=== PATIENT | male | born 1995 | race Caucasian/White ===

== ENCOUNTER 2024-10-23 22:28 | Inpatient (IN) ==
[2024-10-23 23:07] LABS: Appearance Urine Clear (Clear); Bilirubin Urine Negative (Negative); Blood Urine Negative (Negative); Color Urine Yellow; Glucose Urine UA Negative (Negative); Ketones Urine Trace (Negative); Leukocyte Esterase Urine Negative (Negative); Nitrite Urine Negative (Negative); Protein Urine Negative (Negative); Specific Gravity Urine 1.004 (1.000-1.030); Urobilinogen Urine Negative (Negative); pH Urine 6.5 (4.5-7.5)
[2024-10-23 23:08] LABS: Basophils # (auto) 0.07 K/uL (0.00-0.20); Basophils % (auto) 0.9 %; Eosinophils # (auto) 0.15 K/uL (0.00-0.50); Hematocrit (blood only) 41.3 % (42.0-52.0); Hemoglobin 14.1 g/dl (14.0-18.0); Immature Granulocytes # (auto) 0.02 K/uL (0.01-0.20); Immature Granulocytes % (auto) 0.3 %; Lymphocytes # (auto) 2.48 K/uL (1.20-3.40); Lymphocytes % (auto) 33.2 %; Mean Corpuscular Hemoglobin 33.4 pg (25.0-34.0); Mean Corpuscular Hgb Conc 34.1 g/dL (32.0-36.0); Mean Corpuscular Volume 97.9 fL (80.0-100.0); Mean Platelet Volume 10.7 fL (9.4-12.4); Monocytes % (auto) 9.4 %; Neutrophils # (auto) 4.04 K/uL (1.40-6.50); Neutrophils % (auto) 54.2 %; Platelet Count 283 K/uL (130-400); RDW Coefficient of Variation 11.5 % (11.5-14.5); RDW Standard Deviation 41.6 fL (36.4-46.3); Red Blood Count 4.22 M/uL (4.70-6.10); White Blood Count 7.46 K/ul (4.8-10.8)
[2024-10-23 23:30] LABS: Acetaminophen < 3 ug/ml (10-30); Salicylate < 3.0 mg/dl (3.0-30)
--- NOTE | 2024-10-23 23:32 | Emergency Department Note ---
Impression & Plan Suicide attempt by benzodiazepine overdose admit to [facility] ED Provider Note NAME: GALINA ORDAZ AGE: 29 SEX: Male INFORMANT: Patient ED PROVIDER(S): Bettina Grande DO CHIEF COMPLAINT: Suicide attempt by overdose PLAN: Disposition: admit to [facility]. MEDICAL DECISION MAKING: this is a 29-year-old male patient with a history of HIV and eating disorder who presents to the emergency department after a suicide attempt 2 to 3 days ago. The patient states that he took approximately 30 Ativan and attempt to go to sleep and not wake up. Patient describes recent history of worsening depression. He has a history of drug and alcohol abuse and bulimia. He is interested in dual diagnosis placement. He contacted [facility] on his own but they have no available beds. His insurance directed him here for evaluation. patient also admits that he used a drug that a friend gave to him a couple of days ago. He believes that it may have been methamphetamine that he smoked through a pipe. Patient was medically cleared here in the emergency department. He is not currently intoxicated. Table. He is willing to admit himself voluntarily for inpatient psychiatric care. The patient was evaluated by staff from [facility]. They have accepted them onto their unit. Care/management discussed with: ED psychiatric case management Triage Nursing notes: reviewed and agree them. Vital Signs: reviewed and remarkable for no significant abnormalities Additional History obtained from: patient's mother who is at the bedside Chronic Medical/Social Conditions affecting care: bulimia; HIV; drug abuse; alcohol abuse Differential Diagnosis: mood disorder, thought disorder, suicide attempt, drug overdose, alcohol withdrawal, alcohol abuse HPI: 29 year old Male arrives for evaluation of Overdose. patient describes increasing depression and thoughts of suicide. Patient took an overdose of 30 Ativan 2 to 3 days ago in an effort to kill himself. He hopes that he would go to sleep and not wake up. He describes abusing alcohol over the past 3 to 4 months by drinking an increasing amount of wine each day. Patient also suffers from bulimia and states that his eating disorder has become more out of control to the point that he has been vomiting. PAST MEDICAL HISTORY: Depression, anxiety, HIV, bulimia, alcohol abuse SOCIAL HISTORY: patient describes drinking a significant amount of wine each day. 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 He does describe smoking marijuana routinely and had recently abused what he thought was methamphetamine. HOME MEDICATIONS: See list ALLERGIES: see list VITALS: See Below PHYSICAL EXAMINATION: HEENT: Head - normocephalic and atraumatic. Pupils are equal, round, and reactive to light. Extraocular eye muscles are intact, and sclera are anicteric. Nose - moist nasal mucosa without discharge. Mouth - moist buccal mucosa. Oropharynx is nonerythematous and there is no tonsillar exudate or edema noted. Neck: Supple; no cervical lymphadenopathy Heart: tachycardic rate and Regular rhythm.There is a normal S1 and S2 with no murmurs, clicks, or gallops appreciated. Lungs: Clear to auscultation bilaterally with no wheezes, rales, or rhonchi. Abdomen: Soft, completely nontender, nondistended, with good bowel sounds. There are no palpable pulsatile masses or hepatosplenomegaly. There is no guarding, rigidity, or rebound noted. Extremities: No evidence of cyanosis, clubbing, or edema. There are easily palpable peripheral pulses. Skin: warm and dry with good turgor and no rashes. Psych: Patient had an elevated affect admits to suicidal thoughts with an attempt by overdosing on Ativan emergency department course: The patient was evaluated in room A-8. A complete history and physical was performed. Patient describes her previous Psychiatric admissions to [facility] at [facility]. laboratory studies were drawn as above. The patient was medically cleared and the patient was evaluated by the ED psychiatric showcase maker. The patient will be admitted Voluntarily. to 3 [facility]. Past Med/Surg History Problem List (Updated 10/24/24 @ 07:31 by Bettina Grande DO) Suicide attempt by benzodiazepine overdose (Acute) Social History Smoking Status: Never smoker Preferred Language: Azeri Communication Ability: Effective Mucker [place] Required: No Beliefs That Will Affect Care: None Feels Safe at Home: Yes Gender Identity: Male Assistive Devices: Glasses Allergies Allergies Allergy/AdvReac Type Severity Reaction Status Date / Time cyclobenzaprine Allergy Swelling Verified 10/23/24 23:30 [From Flexeril] of Lip/Tongue/Throat pseudoephedrine Allergy Swelling Verified 10/23/24 23:30 [From Sudafed] of Lip/Tongue/Throat Home Meds Home Medications Medication Instructions Recorded Confirmed bictegravir 50 mg-emtricitabine 1 tab PO DAILY 10/23/24 10/23/24 200 mg-tenofovir alafenam 25 mg tablet (Biktarvy) bupropion HCl 150 mg 24 hr tablet, 150 mg PO QAM 10/23/24 10/23/24 extended release buspirone 30 mg tablet 30 mg PO TID PRN Anxiety 10/23/24 10/23/24 citalopram 40 mg tablet 40 mg PO DAILY 10/23/24 10/23/24 hydroxyzine HCl 50 mg tablet 50 mg PO BID PRN Anxiety 10/23/24 10/23/24 lorazepam 1 mg tablet 1 mg PO BID 10/23/24 10/23/24 naltrexone 50 mg tablet 50 mg PO DAILY 10/23/24 10/23/24 ondansetron 4 mg disintegrating 4 mg PO Q8H PRN Nausea 10/23/24 10/23/24 tablet Results & Data (ED) Vital Signs Vital Signs - 24 hr 10/23/24 22:30 10/24/24 00:29 Temperature 36.1 C L Temperature Source Temporal Artery Scan Pulse Rate 104 H Pulse Rate [Finger] 80 Pulse Rhythm Regular Respiratory Rate 16 16 Respiratory Effort / Characteristics Non-Labored Respiratory Depth Normal Blood Pressure 146/106 H Blood Pressure [Right Arm] 131/86 Blood Pressure Mean 119 Blood Pressure Mean [Right Arm] 101 Pulse Oximetry 97 98 Oxygen Delivery Method Room Air Room Air Sepsis Recent Fever Within 48 Hours No Sepsis New/Unexplained Change in Mental Status No Sepsis Action Taken by Nursing No Action Required Laboratory Data 10/23/24 22:51 10/23/24 22:51 Lab Results 10/23/24 10/23/24 10/23/24 Range/Units 22:49 22:51 22:53 WBC 7.46 (4.8-10.8) K/ul RBC 4.22 L (4.70-6.10) M/uL Hgb 14.1 (14.0-18.0) g/dl Hct 41.3 L (42.0-52.0) % MCV 97.9 (80.0-100.0) fL MCH 33.4 (25.0-34.0) pg MCHC 34.1 (32.0-36.0) g/dL RDW Std Deviation 41.6 (36.4-46.3) fL RDW Coeff of Birgit 11.5 (11.5-14.5) % Plt Count 283 (130-400) K/uL MPV 10.7 (9.4-12.4) fL Immature Gran % (Auto) 0.3 % Neut % (Auto) 54.2 % Lymph % (Auto) 33.2 % Cooper % (Auto) 9.4 % Eos % (Auto) 2.0 % Baso % (Auto) 0.9 % Neut # (Auto) 4.04 (1.40-6.50) K/uL Lymph # (Auto) 2.48 (1.20-3.40) K/uL Cooper # (Auto) 0.70 H (0.11-0.59) K/uL Eos # (Auto) 0.15 (0.00-0.50) K/uL Baso # (Auto) 0.07 (0.00-0.20) K/uL Immature Gran # (Auto) 0.02 (0.01-0.20) K/uL Sodium 134 L (136-145) mmol/L Potassium 3.2 L (3.5-5.1) mmol/L Chloride 95 L (98-107) mmol/L Carbon Dioxide 27 (21-32) mmol/L Anion Gap 12 H (3-11) BUN 15 (6-23) mg/dl Creatinine 0.98 (0.6-1.4) mg/dl Est Cr Clr Drug Dosing 117.4 ml/min eGFR 106.38 BUN/Creatinine Ratio 15.3 (10-20) Glucose 93 (70-99(Fasting)) mg/dl Calcium 9.5 (8.6-10.3) mg/dl Total Bilirubin 0.9 (0.2-1.0) mg/dl AST 59 H (13-39) U/L ALT 44 (7-52) U/L Alkaline Phosphatase 52 (34-104) U/L Total Protein 7.5 (6.0-8.3) gm/dl Albumin 4.8 (3.4-5.0) gm/dl Globulin 2.7 (2.5-4.0) gm/dl Albumin/Globulin Ratio 1.8 (0.9-2) TSH 2.645 (0.300-4.500) uIu/ml Urine Color Yellow Urine Appearance Clear (Clear) Urine pH 6.5 (4.5-7.5) Ur Specific [place] 1.004 (1.000-1.030) Urine Protein Negative (Negative) Urine Glucose (UA) Negative (Negative) Urine Ketones Trace H (Negative) Urine Blood Negative (Negative) Urine Nitrite Negative (Negative) Urine Bilirubin Negative (Negative) Urine Urobilinogen Negative (Negative) Ur Leukocyte Esterase Negative (Negative) Salicylates < 3.0 L (3.0-30) mg/dl Urine Opiates Screen Neg (Neg) Ur Methadone, Qual Neg (Neg) Urine Fentanyl Screen Neg (Neg) Acetaminophen < 3 L (10-30) ug/ml Urine Barbiturates Neg (Neg) Ur Phencyclidine (PCP) Neg (Neg) U Amphetamin/Meth Scrn Pos H (Neg) MDMA (Ecstasy) Screen Neg (Neg) U Benzodiazepines Scrn Neg (Neg) Ur Cocaine Metabolite Neg (Neg) U Marijuana (THC) Screen Neg (Neg) Ethyl Alcohol mg/dL < 10.0 (<10.0) mg/dl SARS-CoV-2, RNA, NAAT NEGATIVE (NEGATIVE) Administered Medications Discontinued Medications Potassium Chloride (Potassium Chloride Crtab 20 Meq Tabcr) 40 meq PO NOW STA Stop: 10/23/24 23:56 Last Admin: 10/24/24 00:22 Dose: 40 meq Documented By: AN Discharge Plan Visit Data Chief Complaint: Mental Health Evaluation Stated Complaint: SUICIDAL IDEATION ED Provider: Bettina Grande Discharge Problem: Suicide attempt by benzodiazepine overdose Patient Disposition: Admitted As Inpatient Discharge Instructions Interventions: ED Discharge Assessment Last Done: 10/24/24 02:27
[2024-10-23 23:35] LABS: Albumin Globulin Ratio 1.8 (0.9-2); Albumin Level 4.8 gm/dl (3.4-5.0); BUN Creatinine Ratio 15.3 (10-20); Bilirubin,Total 0.9 mg/dl (0.2-1.0); Calcium 9.5 mg/dl (8.6-10.3); Creatinine Clr Calc Pharmacy 117.4 ml/min; Globulin 2.7 gm/dl (2.5-4.0); Potassium 3.2 mmol/L (3.5-5.1); Total Protein 7.5 gm/dl (6.0-8.3)
[2024-10-23 23:47] LABS: Amphetamines+Metham, Urine Pos (Neg); Barbiturates, Urine Neg (Neg); Benzodiazepine, Urine Neg (Neg); Cocaine, Urine Neg (Neg); Fentanyl, Urine Neg (Neg); MDMA (Ecstacy), Urine Neg (Neg); Marijuana, Urine Neg (Neg); Methadone, Urine Neg (Neg); Opiate, Urine Neg (Neg); Phencyclidine, Urine Neg (Neg)
[2024-10-24 00:07] LABS: Thyroid Stimulating Hormone 2.645 uIu/ml (0.300-4.500)
[2024-10-24] MEDS: POTASSIUM CHLORIDE CRTAB 20 MEQ TABCR PO STA (00:22)
--- OUTSIDE RECORDS SUMMARY | 2024-10-24 02:42 | External Medical Summary ---
Author Name Unknown Address Unknown Organization [id number]:[facility] [place] - [address] [facility] [address] Laboratory Report Ordering Provider Test Date Status BERNADETTE HARE 07/09/2024 21:54:03 Final Cutoff Concentrations:
Drug Level
Amphetamines 500 ng/mL
Benzodiazepines 100 ng/mL
Cannabinoids 50 ng/mL
Cocaine Metabolite 150 ng/mL
Fentanyl 1 ng/mL
Hydrocodone / Hydromorphone 300 ng/mL
Methadone Metabolite 100 ng/mL
Morphine / Codeine 300 ng/mL
Oxycodone / Oxymorphone 100 ng/mL

Screening results are presumptive and can only be used for medical purposes. Confirmatory testing is available upon request. Observation Date Value Abnormality Reference (Units ) Status Amphetamines, Urine screen 07/09/2024 21:54:03 Negative Negative Final Benzodiazepines, Urine screen 07/09/2024 21:54:03 Positive Abnormal Negative Final Cannabinoids, Urine screen 07/09/2024 21:54:03 Negative Negative Final Cocaine Metabolite, Urine screen 07/09/2024 21:54:03 Negative Negative Final fentaNYL [Presence] in Urine by Screen method 07/09/2024 21:54:03 Negative Negative Final HYDROcodone [Presence] in Urine by Screen method 07/09/2024 21:54:03 Negative Negative Final 0-Egsbdqmdzz-5,5-Dimeth yl-3,3-Diphenylpyrrolid ine (EDDP) [Presence] in Urine 07/09/2024 21:54:03 Negative Negative Final Opiates, Urine screen 07/09/2024 21:54:03 Negative Negative Final oxyCODONE [Presence] in Urine by Screen method 07/09/2024 21:54:03 Negative Negative Final Performing Location [facility] - [address] [facility] [id number]
--- OUTSIDE RECORDS SUMMARY | 2024-10-24 02:42 | External Medical Summary | Summary of Care ---
Author Name Unknown Organization [facility] Address [address] [place] [address] Phone [phone] Care Team Providers Care Crusher Feeder Name Role Phone Rashaad Caleb Primary Care Provider [phone] Reason for Visit * Reason Onset Date Comments Precert Denied 09/16/2024 Encounter Details Date Type Department Care Team (Late st Contact Info) Description 09/16/2024 Telephone General Surgery, [place] [address] [place] [address] Ana Garza MD [address] [place] [address] Precert Denied Allergies Active Allergy Reactions Criticality Noted Date Comments Cyclobenzaprine Hcl Psych complications 015 Mirtazapine Other (Please comment) Medium Hearing voices, decreased LOC Chlorpheniramine-Pseudoe ph 08/18/2014 Hives Pseudoephedrine Hcl Er 08/18/2014 Hives documented as of this encounter (statuses as of 09/20/2024) Medications Medication Sig Dispensed Refills Start Date End Date Status buPROPion HCl ER (SR) 150 MG Oral Tablet Extended Release 12 Hour Take 1 Tablet by mouth in the morning. Active busPIRone HCl 15 MG Oral Tablet (Buspar) Take 1 Tablet by mouth in the morning and 1 Tablet at noon and 1 Tablet before bedtime. 05/14/2023 Active Gabapentin 100 MG Oral Capsule Take 1 Capsule by mouth at bedtime. Active hydrOXYzine Pamoate 50 MG Oral Capsule Take 2 Capsules by mouth daily. 05/14/2023 Active Naltrexone HCl 50 MG Oral Tablet Take 1 Tablet by mouth in the morning. 07/14/2023 Active Naproxen 500 MG Oral Tablet (Naprosyn) Take 1 Tablet by mouth. 04/10/2023 Active NIFEdipine ER Osmotic Release 30 MG Oral Tablet Extended Release 24 Hour Take 1 Tablet by mouth in the morning. 06/18/2023 Active risperiDONE 2 MG Oral Tablet Take 2 Tablets by mouth. 05/14/2023 Active carBAMazepine 200 MG Oral Tablet Take 1 Tablet by mouth in the morning and 1 Tablet before bedtime. Active Cholecalciferol 25 MCG (1000 UT) Oral Tablet Disintegrating Take 1 Tablet by mouth daily. Active Melatonin 5 MG Oral Tablet Disintegrating Take 1 Tablet by mouth daily. Active Multi Complete/Iron Oral Tablet Take by mouth. Active Cilostazol 100 MG Oral Tablet (Pletal) Take 1 Tablet by mouth in the morning and 1 Tablet before bedtime. 180 Tablet 3 08/06/2023 Active Biktarvy 50-200-25 MG Oral Tablet (Bictegravir-Emtricita bine-Tenofovir)Indicat ions:HIV, asymptomatic (HCC) Take 1 Tablet by mouth in the morning. 30 Tablet 6 08/10/2023 Active Amoxicillin-Pot Clavulanate 875-125 MG Oral Tablet (Augmentin) Take 1 Tablet by mouth in the morning and 1 Tablet before bedtime. 20 Tablet 06/05/2024 Active Chlorhexidine Gluconate 0.12 % Mouth/Throat Solution (Periogard) Swish and spit 15 mL in the morning and 15 mL before bedtime. 473 mL 06/05/2024 Active LORazepam 1 MG Oral Tablet (Ativan) 07/08/2024 Active hydrOXYzine HCl 50 MG Oral Tablet 07/08/2024 Active documented as of this encounter (statuses as of 09/20/2024) Active Problems Problem Noted Date Diagnosed Date Anal bleeding 07/19/2024 PTSD (post-traumatic stress disorder) 07/10/2024 Bereavement, uncomplicated 07/10/2024 Borderline personality disorder 07/10/2024 Inhalant abuse with intoxication and without com plication 06/14/2017 Chronic bilateral low back pain with bilateral s ciatica 05/20/2017 Neck pain 04/01/2016 H/O psychiatric hospitalization 03/12/2016 Bipolar depression 02/21/2016 Polysubstance (excluding opioids) dependence 07/2015 Anticholinergic drug overdose 12/14/2014 Substance induced mood disorder 09/05/2014 Alcohol abuse 09/05/2014 Cannabis abuse 09/05/2014 Tobacco abuse 09/05/2014 Legal circumstances 09/05/2014 Overview: Is on Probation with [facility] [place], may have further charges from State [employer] HIV disease 08/23/2014 Syphilis 08/23/2014 Anxiety state 03/19/2012 Depression 03/19/2012 Bulimia nervosa in remission Overview: from 20-21yo documented as of this encounter (statuses as of 09/20/2024) Resolved Problems Problem Noted Date Diagnosed Date Resolved Date Altered mental state 03/12/2016 016 Hallucinations 12/07/2014 12/08/2014 Itching 08/27/2014 12/07/2014 Mandibular abscess 08/27/2014 5 Constipation 08/27/2014 12/07/2014 Overview: ICD-10 update of inactive term documented as of this encounter (statuses as of 09/20/2024) Immunizations Name Administration Dates Next Due PPD 12/07/2014 Pneumococcal Conjugate Vacc, 13 Valent (Prevnar) 04/24/2017 Pneumococcal Polysaccharide PPV23 (Pneumovax) Seasonal Influenza Vac., MDV, IM, 0.5 mL (Fluzon e) 09/16/2011 Seasonal Influenza, PF, 6 M & above, IM , (FluLaval or Fluzone) 08/10/2023,10/23/2022 Seasonal Influenza, Quadrivalent, No Preserve, I M 09/27/2015 TDAP, Age 7 and older, IM (Adacel) 10/23/2010 documented as of this encounter Social History Tobacco Use Types Packs/Day Years Used Date Smoking Tobacco: Former Cigarettes 1 8 Smokeless Tobacco: Never Comments:declined Alcohol Use Standard Drinks/Week Comments No 0 (1 standard drink = 0.6 oz pur e alcohol) Alcohol 18 months ago. Sex and Gender Information Value Date Recorded Sex Assigned at Not on file Gender Identity Not on file Sexual Orientation Not on file Job Start Date Occupation Industry Not on file Not on file Not on file documented as of this encounter Functional Status Functional Status Response Date of Assess ment Are you deaf or do you have serious difficulty h earing? No 12/14/2014 Are you blind or do you have serious difficulty seeing, even when wearing glasses? No 12/14/2014 Do you have serious difficul ty walking or climbing stairs? (5 years old or older) No 12/14/2014 Do you have difficulty dress ing or bathing? (5 years old or older) No 12/14/2014 Because of a physical, menta l, or emotional condition, do you have difficulty doing errands alone such as visiting a doctor s office or shopping? (15 years old or older) No 12/14/19 15 Cognitive Status Response Date of Assessm ent Because of a physical, menta l, or emotional condition, do you have serious difficulty concentrating, remembering, or making decisions? (5 years old or older) No 12/14/2014 documented as of this encounter Miscellaneous Notes * Telephone Encounter - Marcie Lagunas LPN - 09/20/2024 9:27 AM EDT Phone call to patient regarding his scheduled procedure on 09/23/24, to make him aware that Dr. Garza is out of his Insurance network and that Authorization was denied as there is available in network providers, message left for patient to return call, will also send patient a message via [employer]. * Telephone Encounter - Marion Rai OSA - 09/16/2024 8:59 AM EDT Images from the original note were not included. Kenyetta Garza, This is a reminder: documented in this encounter Plan of Treatment Upcoming Encounters Date Type Department Care Team (Latest Contact Info) Description 09/23/2024 10:17 AM EDT Hospital Encounter OR [facility], Operating Room, [facility] - 2nd Floor [address] [place] [phone] Ana Garza MD [address] [place] [address] 09/23/2024 10:17 AM EDT - 09/23/2024 12:07 PM EDT Surgery OR [facility], Operating Room, [facility] - 2nd Floor [address] [place] [phone] Ana Garza MD [address] [place] [address] ANORECTAL EXAM UNDER ANESTHESIA Scheduled Procedures Name Priority Associated Diagnoses Date/Ti me ANORECTAL EXAM UNDER ANESTHESIA Anal bleeding 09/23/2024 10:17 AM EDT COLONOSCOPY FLEXIBLE PROXIMA L DIAGNOSTIC Anal bleeding 09/23/2024 10:17 AM EDT Health Maintenance Due Date Last Done Comments MENINGOCOCCAL (MENACTRA/MENVEO) (1 - Risk 2-dose series) 02/13/1996 COVID-19 Vaccine (#1) 1999 Depression Monitoring 04/22/2017 04/22/2016 Pneumococcal Vaccine: Pediatrics (0 to 5 Years) and At-Risk Patients (6 to 64 Years) (3 of 3 - PPSV23 or PCV20) 09/27/2020 04/24/2017, 09/27/2015 DTap/Tdap Vaccines (2 - Td or Tdap) 10/23/2020 10/23/2010 Influenza Vaccine (FLU shot) (#1) 2024 08/10/2023, 10/23/2022, 09/27/2015, Additional history exists HPV (Gardasil) Vaccine Aged Out No lo nger eligible based on patient's age to complete this topic documented as of this encounter Medical Devices Not on filedocumented as of this encounter Advance Directives * Full Code (Latest Code Status on File) Date Activated Date Inactivated Comments 06/14/2017 12:14 PM 06/17/2017 6:02 PM This order reflects the patients wishes and were consensually agreed upon. * Full Code Date Activated Date Inactivated Comments 06/14/2017 12:42 AM 06/14/2017 12:12 PM This order reflects the patients wishes and were consensually agreed upon. Question Answer Comments Discussion of Advance Directives occurred with: Patient Does the patient have a Living Will? No Does the patient have Health Care Power of Attor bryanna? No * Full Code Date Activated Date Inactivated Comments 05/31/2017 7:39 PM 06/05/2017 2:57 PM This order re flects the patients wishes and were consensually agreed upon. * Full Code Date Activated Date Inactivated Comments 06/03/2016 10:21 AM 06/03/2016 6:45 PM Question Answer Comments Discussion of Advance Directives occurred with: Not Discussed Does the patient have a Living Will? No Does the patient have Health Care Power of Attor bryanna? No * Full Code Date Activated Date Inactivated Comments 03/11/2016 4:39 PM 03/12/2016 9:44 PM This order r eflects the patients wishes and were consensually agreed upon. Care Teams Crusher Feeder Relationship Specialty Start Date End Date Caleb Neil DO [address] [facility] [address] [address] PCP - General Family Medicine 07/09/24 documented as of this encounter
--- OUTSIDE RECORDS SUMMARY | 2024-10-24 02:42 | External Medical Summary | Summary of Care ---
Author Name Unknown Organization [facility] Address [address] [place] [address] Phone [phone] Care Team Providers Care Cricket Coach Name Role Phone Caleb Neil Primary Care Provider [phone] Reason for Visit * Reason Onset Date Comments case management 09/20/2024 Appt reschedule Encounter Details Date Type Department Care Team (Late st Contact Info) Description 09/20/2024 Telephone Infectious Disease Treatment, [place] [address] [place] [address] Ella Otero, AXMINSTER WEAVER case management (Appt reschedule) Allergies Active Allergy Reactions Criticality Noted Date Comments Cyclobenzaprine Hcl Psych complications 015 Mirtazapine Other (Please comment) Medium Hearing voices, decreased LOC Chlorpheniramine-Pseudoe ph 08/18/2014 Hives Pseudoephedrine Hcl Er 08/18/2014 Hives documented as of this encounter (statuses as of 10/13/2024) Medications buPROPion HCl ER (SR) 150 MG Oral Tablet Extended Release 12 Hour Take 1 Tablet by mouth in the morning. Active busPIRone HCl 15 MG Oral Tablet (Buspar) Take 1 Tablet by mouth in the morning and 1 Tablet at noon and 1 Tablet before bedtime. 3 Active Gabapentin 100 MG Oral Capsule Take 1 Capsule by mouth at bedtime. Active hydrOXYzine Pamoate 50 MG Oral Capsule Take 2 Capsules by mouth daily. 3 Active Naltrexone HCl 50 MG Oral Tablet Take 1 Tablet by mouth in the morning. 3 Active Naproxen 500 MG Oral Tablet (Naprosyn) Take 1 Tablet by mouth. 3 Active NIFEdipine ER Osmotic Release 30 MG Oral Tablet Extended Release 24 Hour Take 1 Tablet by mouth in the morning. 3 Active risperiDONE 2 MG Oral Tablet Take 2 Tablets by mouth. 3 Active carBAMazepine 200 MG Oral Tablet Take [...] 1 Tablet before bedtime. 180 Tablet 3 3 Active Biktarvy 50-200-25 MG Oral Tablet (Bictegravir-Emtric itabine-Tenofovir)I ndications:HIV, asymptomatic (HCC) Take 1 Tablet by mouth in the morning. 30 Tablet 6 3 Active Amoxicillin-Pot Clavulanate 875-125 MG Oral Tablet (Augmentin) Take 1 Tablet by mouth in the morning and 1 Tablet before bedtime. 20 Tablet 4 Active Chlorhexidine Gluconate 0.12 % Mouth/Throat Solution (Periogard) Swish and spit 15 mL in the morning and 15 mL before bedtime. 473 mL 4 Active LORazepam 1 MG Oral Tablet (Ativan) 4 Active hydrOXYzine HCl 50 MG Oral Tablet 4 Active documented as of this encounter (statuses as of 10/13/2024) Active Problems Problem Noted Date Diagnosed Date [...] 09/05/2014 Tobacco abuse 09/05/2014 Legal circumstances 09/05/2014 Overview (09/05/2014): Is on Probation with [facility], may have further charges from [employer] HIV disease 08/23/2014 Syphilis 08/23/2014 Anxiety state 03/19/2012 Depression 03/19/2012 Bulimia nervosa in remission Overview (05/20/2017): from [age]yo documented as of this encounter (statuses as of 10/13/2024) Resolved Problems Problem Noted Date Diagnosed Date Resolved Date Altered mental state 03/12/2016 016 Hallucinations 12/07/2014 12/08/2014 Itching 08/27/2014 12/07/2014 Mandibular abscess 08/27/2014 5 Constipation 08/27/2014 12/07/2014 Overview (08/24/2017): ICD-10 update of inactive term documented as of this encounter (statuses as of 10/13/2024) Immunizations Name Administration Dates Next Due PPD [...] Recorded Sex Assigned at Not on file Legal Sex Male 3:44 PM EDT Gender Identity Not on file Sexual Orientation Not on file documented as of this encounter Functional Status * Are you deaf or do you have serious difficulty hearing? Answer Date of Assessment Author No 12/14/2014 5:43 AM Deja Serrano RN * Are you blind or do you have serious difficulty seeing, even when wearing glasses? Answer Date of Assessment Author No 12/14/2014 5:43 AM Deja Serrano RN * Do you have serious difficulty walking or climbing stairs? (5 years old or older) Answer Date of Assessment Author No 12/14/2014 5:43 AM Deja Serrano RN * Do you have difficulty dressing or bathing? (5 years old or older) Answer Date of Assessment Author No 12/14/2014 5:43 AM Deja Serrano RN * Because of a physical, mental, or emotional condition, do you have difficulty doing errands alone such as visiting a doctors office or shopping? (15 years old or older) Answer Date of Assessment Author No 12/14/2014 5:43 AM Deja Serrano RN documented as of this encounter Mental Status * Because of a physical, mental, or emotional condition, do you have serious difficulty concentrating, remembering, or making decisions? (5 years old or older) Answer Entry Date Author No 12/14/2014 5:43 AM Deja Serrano RN documented in this encounter Miscellaneous Notes * Telephone Encounter - Emilie Newman OSA - 10/13/2024 9:43 AM EST 3rd Attempt, Called patient, no answer, left VM, Sent MyG * Telephone Encounter - Emilie Newman OSA - 10/06/2024 10:58 AM EST Called patient, no answer, left VM * Telephone Encounter - Emilie Newman OSA - 09/29/2024 9:29 AM EST Called patient, no answer, left VM * Telephone Encounter - Ella Otero LSW - 09/20/2024 10:47 AM EDT Pt., Colt did not show for his scheduled appt with Dr. Prather on 09/19/2024. CM routing to Tom Newman, Doggy Daycare Activities Director to please attempt to reschedule. Emilie, please reach out to CM prior to calling pt to reschedule appt. Time spent: 15 minutes documented in this encounter Plan of Treatment Health Maintenance Due Date Last Done Comments [...] and were consensually agreed upon. Care Teams Cricket Coach Relationship Specialty Start Date End Date Caleb Neil DO [address] [facility] [address] [place] [address] PCP - General Family Medicine 07/09/24 documented as of this encounter
--- OUTSIDE RECORDS SUMMARY | 2024-10-24 02:42 | External Medical Summary ---
Author Name Unknown Address Unknown Organization [id number]:[facility] [place] - [address] [place] [address] Laboratory Report Ordering Provider Test Date Status BERNADETTE HARE 07/09/2024 17:23:00 Final Observation Date Value Abnormality Reference (Units ) Status WBC, Total 07/09/2024 17:23:00 7.04 4.00-10.80 (K/uL) Final RBC 07/09/2024 17:23:00 4.31 4.50-5.25 (M/uL) Final Hemoglobin 07/09/2024 17:23:00 14.3 14.0-16.8 (g/dL) Final HCT 07/09/2024 17:23:00 43.2 40.0-48.4 (%) Final MCV 07/09/2024 17:23:00 100.2 82.0-99.5 (fL) Final MCH 07/09/2024 17:23:00 33.2 27.0-34.0 (pg) Final MCHC 07/09/2024 17:23:00 33.1 32.0-36.0 (g/dL) Final RDW 07/09/2024 17:23:00 12.6 11.5-15.5 (%) Final Platelets 07/09/2024 17:23:00 169 140-400 (K/uL) Final MPV 07/09/2024 17:23:00 11.1 6.6-11.1 (fL) Final Nucleated erythrocytes/100 leukocytes [Ratio] in Blood by Automated count 07/09/2024 17:23:00 0 <=0 (/100 WBCs) Final Performing Location [facility] [place] - [address] [place] [address]
--- OUTSIDE RECORDS SUMMARY | 2024-10-24 02:42 | External Medical Summary | Summary of Care ---
Author Name Unknown Organization [facility] Address [address] [place] [address] Phone [phone] Care Team Providers Care Thermit Welding Machine Operator Name Role Phone Caleb Neil Primary Care Provider [phone] Reason for Visit * Reason Onset Date Comments case management 09/12/2024 Appt Reminder Encounter Details Date Type Department Care Team (Late st Contact Info) Description 09/12/2024 Telephone Infectious Disease Treatment, [place] [address] [place], [place] [id number] Tavia Puri BS case management (Appt Reminder) Allergies Active Allergy Reactions Criticality Noted Date Comments Cyclobenzaprine Hcl Psych complications 015 Mirtazapine Other (Please comment) Medium Hearing voices, decreased LOC Chlorpheniramine-Pseudoe ph 08/18/2014 Hives Pseudoephedrine Hcl Er 08/18/2014 Hives documented as of this encounter (statuses as of 09/12/2024) Medications Medication Sig Dispensed Refills Start Date [...] as of this encounter (statuses as of 09/12/2024) Active Problems Problem Noted Date Diagnosed Date [...] circumstances 09/05/2014 Overview: Is on Probation with [facility], may have further charges from [employer] HIV disease 08/23/2014 Syphilis 08/23/2014 Anxiety state 03/19/2012 Depression 03/19/2012 Bulimia nervosa in remission Overview: from 20-21yo documented as of this encounter (statuses as of 09/12/2024) Resolved Problems Problem Noted Date Diagnosed Date Resolved Date Altered mental state 03/12/2016 016 Hallucinations 12/07/2014 12/08/2014 Itching 08/27/2014 12/07/2014 Mandibular abscess 08/27/2014 5 Constipation 08/27/2014 12/07/2014 Overview: ICD-10 update of inactive term documented as of this encounter (statuses as of 09/12/2024) Immunizations Name Administration Dates Next Due PPD [...] encounter Miscellaneous Notes * Telephone Encounter - Tavia Puri BS - 09/12/2024 10:49 AM EDT Contacted Colt ([phone]) to remind him of his appointment on Thursday, September 19, 2024 at 4:20PM with Dr. Prather in [place]. However, wasn't able to reach patient and had to leave a voicemail. CM phone number provided incase any questions/concerns. Time Spent: 15 minutes documented in this encounter Plan of Treatment Upcoming Encounters Date Type Department Care Team (Latest Contact Info) Description 09/19/2024 4:20 PM EDT Office Visit Infectious Disease Treatment, [place] [address] [place] [address] Osvaldo Prather II, DO [address] [place] [address] 09/23/2024 2:12 PM EDT Hospital Encounter OR [facility], Operating Room, [facility] - 2nd Floor [address] [place] [id number] Ana Garza MD [address] [place] [address] 09/23/2024 2:12 PM EDT - 09/23/2024 4:02 PM EDT Surgery OR [facility], Operating Room, [facility] - 2nd Floor [address] [place] [address] Ana Garza MD [address] [place], [place] [id number] ANORECTAL EXAM UNDER ANESTHESIA Scheduled Procedures Name Priority Associated Diagnoses Date/Ti me ANORECTAL EXAM UNDER ANESTHESIA Anal bleeding 09/23/2024 2:12 PM EDT COLONOSCOPY FLEXIBLE PROXIMA L DIAGNOSTIC Anal bleeding 09/23/2024 2:12 PM EDT Health Maintenance Due Date Last Done [...] and were consensually agreed upon. Care Teams Thermit Welding Machine Operator Relationship Specialty Start Date End Date Caleb Neil DO [address] [facility] [address] [place] [address] PCP - General Family Medicine 07/09/24 documented as of this encounter
--- OUTSIDE RECORDS SUMMARY | 2024-10-24 02:42 | External Medical Summary | Summary of Care ---
Author Name Unknown Organization [facility] Address [address] [place] [address] Phone [phone] Care Team Providers Care Puller Through Name Role Phone Caleb Neil Primary Care Provider [phone] Reason for Visit * Reason Onset Date Comments case management 09/20/2024 Appt reschedule Encounter Details Date Type Department Care Team (Late st Contact Info) Description 09/20/2024 Telephone Infectious Disease Treatment, [place] [address] [place] [address] Ella Otero, HAND HARDENER case management (Appt reschedule) Allergies Active Allergy Reactions Criticality Noted Date Comments Cyclobenzaprine Hcl Psych complications 015 Mirtazapine Other (Please comment) Medium Hearing voices, decreased LOC Chlorpheniramine-Pseudoe ph 08/18/2014 Hives Pseudoephedrine Hcl Er 08/18/2014 Hives documented as of this encounter (statuses as of 10/06/2024) Medications buPROPion HCl ER (SR) 150 MG [...] as of this encounter (statuses as of 10/06/2024) Active Problems Problem Noted Date Diagnosed Date [...] 09/05/2014 Overview (09/05/2014): Is on Probation with [facility], may have further charges from [employer] HIV disease 08/23/2014 Syphilis 08/23/2014 Anxiety state 03/19/2012 Depression 03/19/2012 Bulimia nervosa in remission Overview (05/20/2017): from [age]yo documented as of this encounter (statuses as of 10/06/2024) Resolved Problems Problem Noted Date Diagnosed Date Resolved Date Altered mental state 03/12/2016 016 Hallucinations 12/07/2014 12/08/2014 Itching 08/27/2014 12/07/2014 Mandibular abscess 08/27/2014 5 Constipation 08/27/2014 12/07/2014 Overview (08/24/2017): ICD-10 update of inactive term documented as of this encounter (statuses as of 10/06/2024) Immunizations Name Administration Dates Next Due PPD [...] on 09/19/2024. CM routing to Tom Newman, Inspector to please attempt to reschedule. Emilie, please [...] and were consensually agreed upon. Care Teams Puller Through Relationship Specialty Start Date End Date Caleb Neil DO [address] [place] [address] PCP - General Family Medicine 07/09/24 documented as of this encounter
--- OUTSIDE RECORDS SUMMARY | 2024-10-24 02:42 | External Medical Summary | Summary of Care ---
Author Name Unknown Organization [facility] Address [address] [place] [address] Phone [phone] Care Team Providers Care New Client Banking Services Clerk Name Role Phone Caleb Neil Primary Care Provider [phone] Reason for Visit * Reason Onset Date Comments case management 09/20/2024 Appt reschedule Encounter Details Date Type Department Care Team (Late st Contact Info) Description 09/20/2024 Telephone Infectious Disease Treatment, [place] [address] [place] [address] Ella Otero, SHIP WASHER case management (Appt reschedule) Allergies Active Allergy [...] circumstances 09/05/2014 Overview: Is on Probation with [facility], may have further charges from [employer] [...] encounter Miscellaneous Notes * Telephone Encounter - Ella Otero LSW - 09/20/2024 10:47 AM EDT Pt., Colt did not show for his scheduled appt with Dr. Prather on 09/19/2024. CM routing to Tom Newman, Language Teacher to please attempt to reschedule. Emilie, please [...] and were consensually agreed upon. Care Teams New Client Banking Services Clerk Relationship Specialty Start Date End Date Caleb Neil DO [address] [facility] [address] [place] [address] PCP - General Family Medicine 07/09/24 documented as of this encounter
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
--- OUTSIDE RECORDS SUMMARY | 2024-10-24 02:42 | External Medical Summary | Summary of Care ---
Author Name Unknown Organization [facility] Address [address] [place] [address] Phone [phone] Care Team Providers Care Physician Asst Name Role Phone Caleb Neil Primary Care Provider [phone] Reason for Visit * Reason Onset Date Comments case management 09/20/2024 Appt reschedule Encounter Details Date Type Department Care Team (Late st Contact Info) Description 09/20/2024 Telephone Infectious Disease Treatment, [place] [address] [place] [address] Ella Otero, ALARM MECHANISM ADJUSTER case management (Appt reschedule) Allergies Active Allergy Reactions Criticality Noted Date Comments Cyclobenzaprine Hcl Psych complications 015 Mirtazapine Other (Please comment) Medium Hearing voices, decreased LOC Chlorpheniramine-Pseudoe ph 08/18/2014 Hives Pseudoephedrine Hcl Er 08/18/2014 Hives documented as of this encounter (statuses as of 09/29/2024) Medications Medication Sig Dispensed Refills Start Date [...] as of this encounter (statuses as of 09/29/2024) Active Problems Problem Noted Date Diagnosed Date [...] circumstances 09/05/2014 Overview: Is on Probation with [facility], may have further charges from [employer] HIV disease 08/23/2014 Syphilis 08/23/2014 Anxiety state 03/19/2012 Depression 03/19/2012 Bulimia nervosa in remission Overview: from [age]yo documented as of this encounter (statuses as of 09/29/2024) Resolved Problems Problem Noted Date Diagnosed Date Resolved Date Altered mental state 03/12/2016 016 Hallucinations 12/07/2014 12/08/2014 Itching 08/27/2014 12/07/2014 Mandibular abscess 08/27/2014 5 Constipation 08/27/2014 12/07/2014 Overview: ICD-10 update of inactive term documented as of this encounter (statuses as of 09/29/2024) Immunizations Name Administration Dates Next Due PPD [...] on 09/19/2024. CM routing to Tom Newman, [facility] to please attempt to reschedule. Emilie, please [...] and were consensually agreed upon. Care Teams Physician Asst Relationship Specialty Start Date End Date Caleb Neil DO [address] [facility] [place] [address] [place] [address] PCP - General Family Medicine 07/09/24 documented as of this encounter
--- OUTSIDE RECORDS SUMMARY | 2024-10-24 02:42 | External Medical Summary ---
Author Name Unknown Address Unknown Organization K01:[facility] - [address] [place] [address] Laboratory Report Ordering Provider Test Date Status ANANYALINO MCDUFFIEDUSTY 07/09/2024 17:23:00 Final Observation Date Value Abnormality Reference (Units ) Status Ethanol 07/09/2024 17:23:00 307 Above high normal Ne gative (mg/dL) Final Performing Location [facility] - [address] [place] [address]
--- OUTSIDE RECORDS SUMMARY | 2024-10-24 02:42 | External Medical Summary ---
Author Name Unknown Address Unknown Organization K01:[facility] [place] - [address] [place] [address] Laboratory Report Ordering Provider Test Date Status BERNADETTE HARE 07/09/2024 17:23:00 Final Observation Date Value Abnormality Reference (Units ) Status BUN 07/09/2024 17:23:00 9 6-20 (mg/dL) Final Creatinine 07/09/2024 17:23:00 0.8 0.6-1.2 (mg/dL) Final Glomerular filtration rate/1.73 sq M.predicted [Volume Rate/Area] in Serum, Plasma or Blood by Creatinine-based formula (CKD-EPI) 07/09/2024 17:23:00 >90 >=60 (mL/min) Final eGFR is calculated based on the CKD-EPI 2020 equation. Sodium 07/09/2024 17:23:00 142 135-146 (m mol/L) Final Potassium 07/09/2024 17:23:00 4.3 3.5-5.1 (m mol/L) Final Cl 07/09/2024 17:23:00 105 98-107 (mm ol/L) Final CO2 07/09/2024 17:23:00 25 22-32 (mmo l/L) Final Anion gap 07/09/2024 17:23:00 12 7-15 (mmol /L) Final Glucose 07/09/2024 17:23:00 83 70-120 (mg /dL) Final Albumin 07/09/2024 17:23:00 4.5 3.8-5.0 (g /dL) Final AST (Aspartate aminotransferase) 07/09/2024 17:23:00 134 Above high normal 10-50 (U/L) Final Alk Phos 07/09/2024 17:23:00 60 35-130 (U/ L) Final Bilirubin, Total 07/09/2024 17:23:00 0.3 <=1 .2 (mg/dL) Final Calcium 07/09/2024 17:23:00 9.5 8.4-10.2 ( mg/dL) Final Protein 07/09/2024 17:23:00 7.2 6.0-8.3 (g /dL) Final ALT (Alanine aminotransferase) 07/09/2024 17:23:00 128 Above high normal 10-50 (U/L) Final Performing Location [facility] - [address] [facility] [address]
--- OUTSIDE RECORDS SUMMARY | 2024-10-24 02:42 | External Medical Summary | Summary of Care ---
Author Name Unknown Organization [facility] Address [address] [place] [address] Phone [phone] Care Team Providers Care Home Energy Consultant Name Role Phone Rashaad Caleb Primary Care Provider Reason for Visit * Reason Onset Date Comments Precert Denied 09/16/2024 Encounter Details Date Type Department Care Team (Late st Contact Info) Description 09/16/2024 Telephone General Surgery, [place] [address] [place] [address] Ana Garza MD [address] [place] [address] Precert Denied Allergies Active Allergy [...] circumstances 09/05/2014 Overview: Is on Probation with [facility], may have [...] encounter Miscellaneous Notes * Telephone Encounter - Emilee Hercules OSA - 09/20/2024 10:01 AM EDT Patient has been notified of the message. Patient has no further questions. * Telephone Encounter - Marcie Lagunas LPN - 09/20/2024 9:27 AM EDT Phone call to patient regarding his scheduled procedure on 09/23/24, to make him aware that Dr. Garza is out of his Insurance network and that Authorization was denied as there is available in network providers, message left for patient to return call, will also send patient a message via [employer]. * Telephone Encounter - Marion Rai OSA [...] and were consensually agreed upon. Care Teams Home Energy Consultant Relationship Specialty Start Date End Date Caleb Neil DO [address] [place] [address] [place] [address] PCP - General Family Medicine 07/09/24 documented as of this encounter
--- OUTSIDE RECORDS SUMMARY | 2024-10-24 02:42 | External Medical Summary | Summary of Care ---
Author Name Unknown Organization [facility] Address [address] [place] [address] Phone [phone] Care Team Providers Care Sterile Preparation Technician Name Role Phone Caleb Neil DO Primary Care Provider [phone] Reason for Visit * Reason Comments NEW PATIENT * Evaluate & Treat - Unlimited Visits (Within 3 days (urgent)) - Authorized Specialty Diagnoses / Procedures Referred By Contyasmin t Referred To Contact Colon and Rectal Surgery / General Surgery Diagnoses Rectal mass Caleb Neil DO [address] [place] [address] Referral ID Status Reason Start Date Expiration Date Visits Requested Visits Authorized [id number] Authorized Specialty Services Required 06/01/2024 07/11/2025 [id number] Encounter Details Date Type Department Care Team (Late st Contact Info) Description 07/19/2024 1:30 PM EDT Office Visit [facility] [address] [place] [address] Ana Garza MD [address] [place] [address] Anal bleeding* Allergies Active Allergy Reactions Criticality Noted Date Comments Cyclobenzaprine Hcl Psych complications 015 Mirtazapine Other (Please comment) Medium Hearing voices, decreased LOC Chlorpheniramine-Pseudoe ph 08/18/2014 Hives Pseudoephedrine Hcl Er 08/18/2014 Hives documented as of this encounter (statuses as of 07/21/2024) Medications Medication Sig Dispensed Refills Start Date [...] as of this encounter (statuses as of 07/21/2024) Active Problems Problem Noted Date Diagnosed Date [...] circumstances 09/05/2014 Overview: Is on Probation with [facility], may have further charges from [employer] HIV disease 08/23/2014 Syphilis 08/23/2014 Anxiety state 03/19/2012 Depression 03/19/2012 Bulimia nervosa in remission Overview: from 20-21yo documented as of this encounter (statuses as of 07/21/2024) Resolved Problems Problem Noted Date Diagnosed Date Resolved Date Altered mental state 03/12/2016 016 Hallucinations 12/07/2014 12/08/2014 Itching 08/27/2014 12/07/2014 Mandibular abscess 08/27/2014 5 Constipation 08/27/2014 12/07/2014 Overview: ICD-10 update of inactive term documented as of this encounter (statuses as of 07/21/2024) Immunizations Name Administration Dates Next Due PPD 12/07/2014 Pneumococcal Conjugate Vacc, 13 Valent (Prevnar) 04/24/2017 Pneumococcal Polysaccharide PPV23 (Pneumovax) Seasonal Influenza, PF, 6 M & above, IM , (FluLaval or Fluzone) 08/10/2023,10/23/2022 Seasonal Influenza, Quadrivalent, No Preserve, I M 09/27/2015 Seasonal Influenza, Trivalen t, (IIV3), with Preserv, (Fluzone) 09/16/2011 TDAP, Age 7 and older, IM [...] Sign Reading Time Taken Comments Blood Pressure 117/72 07/19/2024 1:43 PM EDT Pulse 96 07/19/2024 1:43 PM EDT Temperature 36 C (96.8 F) 07/19/2024 1:43 PM EDT Respiratory Rate - - Oxygen Saturation 96% 07/19/2024 1:43 PM EDT Inhaled Oxygen Concentration - - Weight 78.2 kg (172 lb 4.8 oz) 07/19/2024 1:43 P M EDT Height 185.4 cm (6' 1") 07/19/2024 1:43 PM EDT Body Mass Index 22.73 07/19/2024 1:43 PM EDT documented in this encounter Functional Status [...] No 12/14/2014 documented as of this encounter Plan of Treatment Upcoming Encounters Date Type Department Care Team (Latest Contact Info) Description 09/19/2024 4:20 PM EDT Office Visit Infectious Disease, [place] [address] [place] [address] Christiano Prather IIjennifer ClaytonDO [address] [place] [address] 09/23/2024 2:12 PM EDT Hospital Encounter OR [facility], Operating Room, [facility] - 2nd Floor [address] [place] [id number] Ana Garza MD [address], [place] [id number] 09/23/2024 2:12 PM EDT - 09/23/2024 4:02 PM EDT Surgery OR [facility], Operating Room, [facility] - 2nd Floor [address] [place] [address] Ana Garza MD [address], [place] [id number] ANORECTAL EXAM UNDER ANESTHESIA Scheduled Procedures Name [...] Not on filedocumented as of this encounter Visit Diagnoses Diagnosis Anal bleeding- Primary Hemorrhage of rectum and anus Anal bleeding- Primary Hemorrhage of rectum and anus Anal bleeding Hemorrhage of rectum and anus documented in this encounter Advance Directives * [...] and were consensually agreed upon. Care Teams Sterile Preparation Technician Relationship Specialty Start Date End Date Caleb Neil DO [address] [facility] [address] [place] [address] PCP - General Family Medicine 07/09/24 documented as of this encounter
--- OUTSIDE RECORDS SUMMARY | 2024-10-24 02:42 | External Medical Summary ---
Author Name Unknown Address Unknown Organization K01:[facility] - [address] [facility] [address] Laboratory Report Ordering Provider Test Date Status BERNADETTE HARE 07/09/2024 19:09:29 Final SCREENING Observation Date Value Abnormality Reference (Units ) Status SARS Coronavirus 2 07/09/2024 19:09:29 Negative N egative Final 2019 Novel Coronavirus not d etected.

This express test was developed and its performance characteristics determined by [facility]. It has not been cleared or approved [...] (RT-PCR) test, or a Centers for Disease Control-acceptable equivalent. The test is performed in a high complexity Clinical Laboratory Improvement Amendments-(CLIA) certified laboratory. The test is acceptable for SARS-CoV-2 diagnosis, surveillance, and travel within the [place] and to most countries. Please check with local testing authorities about requirements before travel.

The validation of bronchial specimens, tracheal aspirates, and sputum for this assay was developed and performance characteristics determined by [facility]. The validation of alternate specimen types has not been cleared or approved by the U.S. Food and Drug Administration (FDA). It has been determined that such clearance is not necessary. Performing Location LAB[facility]ATORY [place] [address] [facility] [address]
--- OUTSIDE RECORDS SUMMARY | 2024-10-24 02:43 | External Medical Summary | Summary of Care ---
Author Name Unknown Organization [facility] Address [address] [place] [address] Phone [phone] Care Team Providers Care Front Desk Team Member Name Role Phone Caleb Neil DO Primary Care Provider [phone] Reason for Referral * Evaluate & Treat - Unlimited Visits (Within 3 days (urgent)) - Authorized Specialty Diagnoses / Procedures Referred By Contyasmin t Referred To Contact Colon and Rectal Surgery / General Surgery Diagnoses Rectal mass Caleb Neil DO [address] [place] [address] Referral ID Status Reason Start Date Expiration Date Visits Requested Visits Authorized [id number] Authorized Specialty Services Required 06/01/[phone] Question Answer Referral Priority Within 3 days (urgent) Where should this appointment be scheduled? [facility] What condition is the patient being seen for? Other Anal Rectal Conditions Comments Rectal mass Encounter Details Date Type Department Care Team (Late st Contact Info) Description 06/01/2024 Orders Only Access [facility], [facility] [address] [facility] *DO NOT REMOVE THIS DEPARTMENT* [place], [place] [id number] Request, External Referral Rectal mass* Allergies Active Allergy Reactions Criticality Noted Date Comments Cyclobenzaprine Hcl Psych complications 015 Mirtazapine Other (Please comment) Medium Hearing voices, decreased LOC Chlorpheniramine-Pseudoe ph 08/18/2014 Hives Pseudoephedrine Hcl Er 08/18/2014 Hives documented as of this encounter (statuses as of 06/01/2024) Medications Medication Sig Dispensed Refills Start Date [...] the morning. 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 plication 06/14/2017 Chronic bilateral low back pain with bilateral s ciatica 05/20/2017 Neck pain 04/01/2016 H/O psychiatric hospitalization 03/12/2016 Bipolar depression 02/21/2016 Polysubstance (excluding opioids) dependence 07/2015 Anticholinergic drug overdose 12/14/2014 Substance induced mood disorder 09/05/2014 Alcohol abuse 09/05/2014 Cannabis abuse 09/05/2014 Tobacco abuse 09/05/2014 Legal circumstances 09/05/2014 Overview: Is on Probation with [facility], may have further charges from [employer] HIV disease 08/23/2014 Syphilis 08/23/2014 Anxiety state 03/19/2012 Depression 03/19/2012 Bulimia nervosa in remission Overview: from 20-21yo documented as of this encounter (statuses as of 06/01/2024) Resolved Problems Problem Noted Date Diagnosed Date Resolved Date Altered mental state 03/12/2016 016 Hallucinations 12/07/2014 12/08/2014 Itching 08/27/2014 12/07/2014 Mandibular abscess 08/27/2014 5 Constipation 08/27/2014 12/07/2014 Overview: ICD-10 update of inactive term documented as of this encounter (statuses as of 06/01/2024) Immunizations Name Administration Dates Next Due PPD [...] Care Team (Late st Contact Info) Description 09/19/2024 4:20 PM EDT Office Visit Infectious Disease, [place] [address] [place] [address] [place] [address] [place] [address] Scheduled Referrals Name Type Priority Associated Diagnoses Orde r Schedule COLORECTAL SURGERY REFERRAL OP Referral Within 3 days (urgent) Rectal mass Ordered: 06/01/2024 Health Maintenance Due Date Last Done Comments [...] as of this encounter Visit Diagnoses Diagnosis Rectal mass- Primary Other symptoms involving digestive system documented in this encounter Advance Directives * [...] and were consensually agreed upon. Care Teams Front Desk Team Member Relationship Specialty Start Date End Date Caleb Neil DO PCP - General Family Medicine 06/15/23 documented as of this encounter
--- OUTSIDE RECORDS SUMMARY | 2024-10-24 02:43 | External Medical Summary | Summary of Care ---
Author Name Unknown Organization [facility] Address [address] [place] [address] Phone [phone] Care Team Providers Care E Learning Designer Name Role Phone Rashaad Caleb DO Primary Care Provider [phone] Reason for Visit * Reason Onset Date Comments Referral 06/02/2024 Encounter Details Date Type Department Care Team (Late st Contact Info) Description 06/02/2024 Telephone General Surgery, [place] [address] [place] [address] Services, Scheduling [address] [place] [address] Referral Allergies Active Allergy Reactions Criticality Noted Date Comments Cyclobenzaprine Hcl Psych complications 015 Mirtazapine Other (Please comment) Medium Hearing voices, decreased LOC Chlorpheniramine-Pseudoe ph 08/18/2014 Hives Pseudoephedrine Hcl Er 08/18/2014 Hives documented as of this encounter (statuses as of 06/02/2024) Medications Medication Sig Dispensed Refills Start Date [...] as of this encounter (statuses as of 06/02/2024) Active Problems Problem Noted Date Diagnosed Date [...] as of this encounter (statuses as of 06/02/2024) Resolved Problems Problem Noted Date Diagnosed Date Resolved Date Altered mental state 03/12/2016 016 Hallucinations 12/07/2014 12/08/2014 Itching 08/27/2014 12/07/2014 Mandibular abscess 08/27/2014 5 Constipation 08/27/2014 12/07/2014 Overview: ICD-10 update of inactive term documented as of this encounter (statuses as of 06/02/2024) Immunizations Name Administration Dates Next Due PPD [...] encounter Miscellaneous Notes * Telephone Encounter - Mable Carroll LPN - 06/02/2024 8:16 AM EDT Referral from: Dr. Neil Consult: Colorectal Surgery For: rectal mass Attempted to contact patient to schedule appointment - left message on primary phone for patient toreturn call. Will inquire whether patient had colonoscopy completed and will give option to schedule directly with [facility] (approx 4-5 week wait time), or see [facility] for scope consult and completion prior to seeing [facility]. Kalani Carroll LPN Intake Nurse Navigator General Surgery and Breast Clinic [facility] documented in this encounter Plan of Treatment Upcoming Encounters Date Type Department Care Team ([facility] st Contact Info) Description 06/10/2024 2:00 PM EDT [facility] [address] [place] [address] Amauri Love MD [address] [place] [address] 09/19/2024 4:20 PM EDT Office Visit Infectious Disease, [place] [address] [place] [address] Osvaldo Prather II, DO [address] [place] [address] Health Maintenance Due Date Last Done Comments [...] and were consensually agreed upon. Care Teams E Learning Designer Relationship Specialty Start Date End Date Caleb Neil DO PCP - General Family Medicine 06/15/23 documented as of this encounter
--- OUTSIDE RECORDS SUMMARY | 2024-10-24 02:43 | External Medical Summary | Summary of Care ---
Author Name Unknown Organization [facility] Address [address] [place] [address] Phone [phone] Care Team Providers Care Stenciling Machine Tender Name Role Phone Caleb Neil DO Primary Care Provider [phone] Reason for Visit * Reason Comments Joint Pain swelling * Auth/Cert Specialty Diagnoses / Procedures Referred By Jeannette t Referred To Contact [facility] [address] [place] [address] Phone: [phone] Emergency Medicine [facility] [place] [address] [place] [address] Referral ID Status Reason Start Date Expiration Date Visits Re quested Visits Authorized [id number] Encounter Details Date Type Department Care Team (Late st Contact Info) Description 06/05/2024 6:34 AM EDT - 06/05/2024 8:05 AM EDT Emergency [facility] ([place] Emergency Department ([facility]) [address], [place] [id number] Caleb Aleman DO [address] [place] [id number] Dental abscess (Primary Dx) Discharge Disposition: Home - Self Care Allergies Active Allergy Reactions Criticality Noted Date Comments Cyclobenzaprine Hcl Psych complications 015 Mirtazapine Other (Please comment) Medium Hearing voices, decreased LOC Chlorpheniramine-Pseudoe ph 08/18/2014 Hives Pseudoephedrine Hcl Er 08/18/2014 Hives documented as of this encounter (statuses as of 06/05/2024) Medications Medication Sig Dispensed Refills Start Date [...] 08/06/2023 Active Biktarvy 50-200-25 MG Oral Tablet (Bictegravir-Emtric [...] mL before bedtime. 473 mL 06/05/2024 Active Amoxicillin-Pot Clavulanate 875-125 MG Oral Tablet (Augmentin) Take 1 Tablet by mouth in the morning and 1 Tablet before bedtime. Do all this for 10 days. 20 Tablet 06/05/2024 4 Discontinued Chlorhexidine Gluconate 0.12 % Mouth/Throat Solution (Periogard) Swish and spit 15 mL in the morning and 15 mL before bedtime. 473 mL 06/05/2024 4 Discontinued documented as of this encounter (statuses as of 06/05/2024) Active Problems Problem Noted Date Diagnosed Date [...] circumstances 09/05/2014 Overview: Is on Probation with [facility], may have further charges from [employer] HIV disease 08/23/2014 Syphilis 08/23/2014 Anxiety state 03/19/2012 Depression 03/19/2012 Bulimia nervosa in remission Overview: from [age]yo documented as of this encounter (statuses as of 06/05/2024) Resolved Problems Problem Noted Date Diagnosed Date Resolved Date Altered mental state 03/12/2016 016 Hallucinations 12/07/2014 12/08/2014 Itching 08/27/2014 12/07/2014 Mandibular abscess 08/27/2014 5 Constipation 08/27/2014 12/07/2014 Overview: ICD-10 update of inactive term documented as of this encounter (statuses as of 06/05/2024) Immunizations Name Administration Dates Next Due PPD [...] Sign Reading Time Taken Comments Blood Pressure 130/88 06/05/2024 8:00 AM EDT Pulse 84 06/05/2024 8:00 AM EDT Temperature 36.9 C (98.4 F) 06/05/2024 8:00 AM ED T Respiratory Rate 18 06/05/2024 8:00 AM EDT Oxygen Saturation 99% 06/05/2024 8:00 AM EDT Inhaled Oxygen Concentration - - Weight 80.3 kg (177 lb) 06/05/2024 6:30 AM EDT Height 185.4 cm (6' 1") 06/05/2024 6:30 AM EDT Body Mass Index 23.35 06/05/2024 6:30 AM [...] this encounter Discharge Instructions * Discharge Instructions* Toppings, Valene Adalgisa, DO - 06/05/2024 7:39 AM EDT ER Visit Summary: Today you were seen in the [facility] Emergency Department for a dental abscess. The abscess was drained here and you experienced relief of your pain. You were also given some medications for your pain and your 1st antibiotic. This antibiotic was sent to your pharmacy you will take 1 pill twice a day for the next 10 days. You can take Tylenol 650mg-1,000mg and ibuprofen 600mg alternating every 3-4 hours for your pain. Return Precautions: Please return to the emergency room if you develop fevers, severe headache, sudden weakness/numbness, shortness of breath, chest pain, severe abdominal pain/nausea/vomiting, or blood in your stool and/or urine. Follow Up/Continuation Of Care: Please follow up with your primary care physician (PCP) within the next 2 days. You should also make an appointment with a dentist. Below are some numbers you can call to schedulean appointment. Dental Resources List [facility] - [phone] [facility] - [phone] [facility] - [phone] [facility] - [phone] [facility] - [phone] [facility] - [phone] documented in this encounter ED Notes * Shamika Gomez RN - 06/05/2024 6:32 AM EDT Pt presents to ED with complaint of jaw pain and neck pain. Pt states he has a history of abscessesand he believes he is getting another one. In the past, pt reports he has needed drains for the abscesses. He reports his left jaw/face into the lymph nodes in his neck feel tender and like they are beginning to swell. * Caleb Aleman DO - 06/05/2024 6:28 AM EDTAssociated Order(s): Incision & Drainage Images from the original note were not included. HISTORY OF PRESENT ILLNESS Colt Jimenes is a 29 year old male who presents to the ED for evaluation of Joint Pain (swelling).The patient was seen at 0635. Patient presents to the emergency department for concerns for dental abscess. Past medical history of HIV, depression, bipolar, anxiety, substance use, alcohol use, tobacco use. Patient reports symptoms beginning 2 days ago and has felt worsening pain involving the left upper teeth and lymph nodes swelling in his left neck. He feels 2 small abscesses around the 11th tooth. Patient states he has had dental abscesses in the past and required a drain to be placed the last time. He had 400 mg ibuprofen this morning which relieved his pain. Of note, patient states his CD4 levels are undetectable. Review of Systems Constitutional: Negative for chills and fever. HENT: Positive for dental problem. Gastrointestinal: Negative for nausea and vomiting. The patient's allergies, past history, and medications were reviewed. PHYSICAL EXAM Initial Vitals (see all): BP 147/105 | Pulse 99 | Temp 98.2 | O2 98 %, Room Air, None | Weight 80.29 kg | Height 185.4 cm | BMI 23.35 kg/m2 Initial Pain Assessment (see all): 8 (severe pain)/10, Throbbing, location: Left Jaw, left neck ([facility] Adult Scale 0-10) Physical Exam Vitals and nursing note reviewed. Constitutional: General: He is not in acute distress. Appearance: Normal appearance. He is well-developed. He is not ill-appearing, toxic-appearing or diaphoretic. HENT: Head: Normocephalic and atraumatic. Right Ear: External ear normal. Left Ear: External ear normal. Nose: Nose normal. No rhinorrhea. Mouth/Throat: Mouth: Mucous membranes are moist. Dentition: Abnormal dentition. Pharynx: Oropharynx is clear. Eyes: General: No scleral icterus. Extraocular Movements: Extraocular movements intact. Conjunctiva/sclera: Conjunctivae normal. Pupils: Pupils are equal, round, and reactive to light. Cardiovascular: Rate and Rhythm: Normal rate and regular rhythm. Pulses: Normal pulses. Heart sounds: Normal heart sounds. No murmur heard. Pulmonary: Effort: Pulmonary effort is normal. No respiratory distress. Breath sounds: Normal breath sounds. No wheezing, rhonchi or rales. Abdominal: General: Bowel sounds are normal. There is no distension. Palpations: Abdomen is soft. Tenderness: There is no abdominal tenderness. There is no guarding. Musculoskeletal: General: No swelling or tenderness. Normal range of motion. Cervical back: Normal range of motion and neck supple. No tenderness. Skin: General: Skin is warm and dry. Capillary Refill: Capillary refill takes less than 2 seconds. Coloration: Skin is not jaundiced. Findings: No bruising, erythema or rash. Neurological: General: No focal deficit present. Mental Status: He is alert and oriented to person, place, and time. Sensory: No sensory deficit. Motor: No weakness. Psychiatric: Mood and Affect: Mood normal. PROCEDURES AND TREATMENTS ED Orders | ED Results Incision & Drainage Date/Time: 06/05/2024 7:39 AM Performed by: Poli Gardner DO Authorized by: Caleb Aleman DO Consent: Consent obtained: Verbal Consent given by: Patient Risks discussed: Bleeding, incomplete drainage and pain Location: Type: Abscess Size: 1 cm Location: Mouth Mouth location: Alveolar process Sedation: Sedation type: None Anesthesia: Anesthesia method: None Procedure type: Complexity: Simple Procedure details: Incision types: Stab incision (With a 22 gauge needle) Drainage: Purulent and bloody Drainage amount: Moderate Post-procedure details: Patient tolerance of procedure: Tolerated well, no immediate complications MEDICAL DECISION MAKING Nursing notes and vital signs were reviewed. Differential Diagnoses Based on my history, physical exam, and evaluation, the differential includes, but is not limited, to the following diagnoses: periapical abscess, subperiosteal abscess. Colt Jimenes is a 29 year old male who presented with dental pain and concerns for an abscess. Vital signs were WNL. HPI and PMHx as above. Differentials are as above. The abscess lateral to the 11th tooth was drained and patient was administered Tylenol, Toradol, and Augmentin. A 10 day prescription for Augmentin was sent to his pharmacy. I discussed my findings and the plan with the patient. Patient was counseled regarding concerning signs and symptoms that should prompt return for reevaluation in the ED. Patient was stable at the time of discharge. Risk OTC drugs. Prescription drug management. Clinical Impressions Dental abscess Disposition Discharged. The patient's condition at disposition was: stable. Discharge Medications Disp Refills Start End Amoxicillin-Pot Clavulanate 875-125 MG Oral Tablet (Augmentin) 20 Tablet 0 06/05/2024 -- Sig - Route: Take 1 Tablet by mouth in the morning and 1 Tablet before bedtime. - Oral Class: ePrescribing Renewals Renewal requests to authorizing provider (Poli Gardner DO) <b>prohibited</b> Chlorhexidine Gluconate 0.12 % Mouth/Throat Solution (Periogard) 473 mL 0 06/05/2024 -- Sig - Route: Swish and spit 15 mL in the morning and 15 mL before bedtime. - Swish & Spit Class: ePrescribing Renewals Renewal requests to authorizing provider (Poli Gardner DO) <b>prohibited</b> Caleb Aleman was the attending physician who supervised the care of this patient. Adalgisa Gardner DO ATTENDING ATTESTATION I have seen and examined this patient on the 06/05/2024 visit. I have discussed the patient's management with the provider listed above and agree with the note, findings, and plan of care. Procedure Supervision: I was present during leigh portions of the procedure performed on this patient, which can be found inthe procedure section above. documented in this encounter Miscellaneous Notes * Pt Handout (on AVS) - Poli Gardner DO - 06/05/2024 7:39 AM EDT Images from the original note were not included. [id number] Dental Abscess You have been diagnosed with a dental abscess. This is a pocket of fluid (pus) at the tip of a tooth root in your jawbone. It's caused by an infection at the root of the tooth. An abscess can occur when bacteria enter the tooth through a crack in the tooth, a cavity, a gum infection, or a combination of these. The pulp inside the tooth gets infected. Then bacteria can spread down the roots to thetip. If the bacteria are not stopped, they can harm the bone and soft tissue. An abscess can form. Symptoms can include pain, redness, or swelling of the gums, cheek or jaw, sensitivity to hot and cold foods and drinks, bad taste in the mouth, and fever. Pain may spread from the tooth to your ear.Or pain may spread to the part of your jaw on the same side. If the abscess isn?t treated, it lookslike a bubble or swelling on the gum near the tooth. The pressure that builds in this swelling causes pain. More serious infections make your face swell. Home care Follow these guidelines when caring for yourself at home: Don't have hot and cold foods and drinks. Your tooth may be sensitive to changes in temperature.Don?t chew on the side of the infected tooth. Put a cold pack on your jaw over the sore area to help ease pain. You may use zoiq-buw-[id number] medicine to ease pain, unless another medicine was prescribed. If you have chronic liver or kidney disease, or if you've had a stomach ulcer or gastrointestinal (GI) bleeding, talk with your healthcare provider before using acetaminophen or ibuprofen. An antibiotic will be prescribed. Take it exactly as instructed by your healthcare provider. Take it until it's finished, even if you are feeling better after a few days. Follow-up care Follow up with your dentist or an oral surgeon, or as advised. Once an infection occurs in a tooth,it will be a problem until the infection is drained. This is done through surgery or a root canal, or you may need to have your tooth pulled. Call 911 Call 911 if any of these occur: Abnormal drowsiness or confusion Headache or stiff neck Weakness or fainting Trouble swallowing, breathing, or opening your mouth Swollen eyelids or vision problems When to get medical advice Call your healthcare provider right away if any of these occur: Your face gets more swollen or red Pain gets worse or spreads to your neck Fever of 100.4F (38.0C) or higher, or as directed by your provider Pus drains from the tooth Last Reviewed Date: 07/24/202219993763-0782 The [employer]. All rights reserved. This information is not intended as a substitute for professional medical care. Always follow your healthcare professional's instructions. documented in this encounter Plan of Treatment Upcoming Encounters Date Type Department Care Team (Late st Contact Info) Description 06/10/2024 2:00 PM EDT Office Visit General Surgery, [place] [address] [place] [address] Amauri Love MD [address] [place] [address] 09/19/2024 4:20 PM EDT Office Visit Infectious Disease, [place] [address] [place] [address] Osvaldo Prather II, DO [address] [place] [address] Health Maintenance Due Date Last Done Comments [...] Procedure Name Priority Date/Time Associated Diagnosis Comments INCISION & DRAINAGE Routine 06/05/2024 7 :39 AM EDT documented in this encounter Results * Incision & Drainage (06/05/2024 7:39 AM EDT) Narrative Caleb Aleman DO - 06/05/2024 7:39 AM EDT Caleb Aleman DO 06/05/2024 8:33 AM Incision & Drainage Date/Time: 06/05/2024 7:39 AM Performed by: Poli Gardner DO Authorized by: Caleb Aleman DO Consent: Consent obtained: Verbal Consent given by: Patient Risks discussed: Bleeding, incomplete drainage and pain Location: Type: Abscess Size: 1 cm Location: Mouth Mouth location: Alveolar process Sedation: Sedation type: None Anesthesia: Anesthesia method: None Procedure type: Complexity: Simple Procedure details: Incision types: Stab incision (With a 22 gauge needle) Drainage: Purulent and bloody Drainage amount: Moderate Post-procedure details: Patient tolerance of procedure: Tolerated well, no immediate complications Caleb Aleman DO PROCEDURE REPO RT documented in this encounter Visit Diagnoses Diagnosis Dental abscess- Primary Periapical abscess without sinus documented in this encounter Administered Medications Inactive Administered Medications - up to 3 most recent administrations Medication Order MAR Action Action Date Dose Rate Site Acetaminophen (Tylenol) tab 975 mg 975 mg, Oral, ONCE, On 06/05/24 at 0730, For 1 dose, Maximum of 4 grams (4000 mg) per day. Given 06/05/2024 7:11 AM EDT 975 mg amoxicillin-clavulanate (Augmentin) tab 875 mg 875 mg, Oral, ONCE, On 06/05/24 at 0745, For 1 dose Given 06/05/2024 7:13 AM EDT 875 mg keTORolac (Toradol) 30 MG/ML inj 15 mg 15 mg, Intramuscular, ONCE, On 06/05/24 at 0730, For 1 dose Given 06/05/2024 7:11 AM EDT 15 mg Deltoid Left Lower documented in this encounter Active and Recently Administered Medications Times are shown in EDT. Scheduled Medication Order 06/03/2024 06/04/2024 06/05/2024 Acetaminophen (Tylenol) tab 975 mg (COMPLETED) 975 mg, Oral, ONCE, On 06/05/24 at 0730, For 1 dose, Maximum of 4 grams (4000 mg) per day. 0711 (Given - Provid er: Popeye Chew RN) amoxicillin-clavulanate (Augmentin) tab 875 mg (COMPLETED) 875 mg, Oral, ONCE, On 06/05/24 at 0745, For 1 dose 0713 (Given - Provid er: Popeye Chew RN) keTORolac (Toradol) 30 MG/ML inj 15 mg (COMPLETED) 15 mg, Intramuscular, ONCE, On 06/05/24 at 0730, For 1 dose 0711 (Given - Provid er: Popeye Chew RN) documented in this encounter Advance Directives * [...] and were consensually agreed upon. Care Teams Stenciling Machine Tender Relationship Specialty Start Date End Date Caleb Neil DO PCP - General Family Medicine 06/15/23 documented as of this encounter
--- OUTSIDE RECORDS SUMMARY | 2024-10-24 02:43 | External Medical Summary | Summary of Care ---
Author Name Unknown Organization [facility] Address [address] [place] [address] Phone [phone] Care Team Providers Care Surveyor Mine Name Role Phone Rashaad Caleb DO Primary Care Provider [phone] Reason for Visit * Reason Onset Date Comments Referral 06/02/2024 Encounter Details Date Type Department Care Team (Late st Contact Info) Description 06/02/2024 Telephone General Surgery, [place] [address] [place] [address] Services, Scheduling [address] [place] [address] Referral Allergies Active Allergy Reactions Criticality Noted Date Comments Cyclobenzaprine Hcl Psych complications 015 Mirtazapine Other (Please comment) Medium Hearing voices, decreased LOC Chlorpheniramine-Pseudoe ph 08/18/2014 Hives Pseudoephedrine Hcl Er 08/18/2014 Hives documented as of this encounter (statuses as of 06/13/2024) Medications Medication Sig Dispensed Refills Start Date [...] as of this encounter (statuses as of 06/13/2024) Active Problems Problem Noted Date Diagnosed Date [...] circumstances 09/05/2014 Overview: Is on Probation with [facility], may have further charges from [employer] HIV disease 08/23/2014 Syphilis 08/23/2014 Anxiety state 03/19/2012 Depression 03/19/2012 Bulimia nervosa in remission Overview: from 20-21yo documented as of this encounter (statuses as of 06/13/2024) Resolved Problems Problem Noted Date Diagnosed Date Resolved Date Altered mental state 03/12/2016 016 Hallucinations 12/07/2014 12/08/2014 Itching 08/27/2014 12/07/2014 Mandibular abscess 08/27/2014 5 Constipation 08/27/2014 12/07/2014 Overview: ICD-10 update of inactive term documented as of this encounter (statuses as of 06/13/2024) Immunizations Name Administration Dates Next Due PPD [...] encounter Miscellaneous Notes * Telephone Encounter - Allegra Man OSA - 06/13/2024 9:18 AM EDT Attempted to contact patient to schedule with a Colorectal Surgeon. No answer. Left message asking for a return call. * Telephone Encounter - Mable Carroll LPN - 06/02/2024 8:16 AM EDT Referral from: Dr. Neil Consult: Colorectal Surgery For: rectal mass Attempted to contact patient to schedule appointment - left message on primary phone for patient toreturn call. Will inquire whether patient had colonoscopy completed and will give option to schedule directly with [facility] (approx 4-5 week wait time), or see [facility] for scope consult and completion prior to seeing [facility]. Kalani Carroll LPN Intake Nurse Navigator General Surgery and Breast Clinic [facility] documented in this encounter Plan of Treatment Upcoming Encounters Date Type Department Care Team (Late st Contact Info) Description 09/19/2024 4:20 PM EDT Office Visit Infectious Disease, [place] [address] [place] [address] Osvaldo Prather II, DO [address] [place] [address] Health Maintenance Due Date Last Done Comments [...] and were consensually agreed upon. Care Teams Surveyor Mine Relationship Specialty Start Date End Date Caleb Neil DO PCP - General Family Medicine 06/15/23 documented as of this encounter
[2024-10-24] MEDS ORDERED: hydrOXYzine HCl 25 MG TAB PO PRN ×2 (03:04)
[2024-10-24] MEDS ORDERED: LORazepam 1 MG TAB PO PRN ×3 (03:04)
[2024-10-24] MEDS ORDERED: SODIUM CHLORIDE 0.65% NA SOLN 45 ML (OCEAN) PRN ×2 (03:04→12:34)
[2024-10-24] MEDS ORDERED: ALUMINUM/MAGNESIUM SUSP 30 ML UDC PO PRN (03:04)
[2024-10-24] MEDS ORDERED: BISMUTH SUBSALICYLATE 262 MG CHEW PO PRN (03:04)
[2024-10-24] MEDS ORDERED: Ativan PO Alcohol Withdrawal--Active Protocol PO PRN (03:04)
[2024-10-24] MEDS ORDERED: MAGNESIUM HYDROXIDE SUSP 30 ML UDC PO PRN (03:04)
[2024-10-24] MEDS: CITALOPRAM 40 MG TAB PO SCH (09:13)
[2024-10-24] MEDS: buPROPion SR 150 MG TABCR PO SCH (09:13)
[2024-10-24] MEDS: BIKTARVY PO SCH (09:14)
[2024-10-24] MEDS: NICOTINE 21 MG/24 HR TDSY TD SCH (09:14)
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
[2024-10-24] MEDS: LORazepam 1 MG TAB PO STA (13:06)
[2024-10-24] MEDS: lamoTRIgine 25 MG TAB PO SCH (13:06)
[2024-10-24] MEDS: VENLAFAXINE HCL XR 37.5 MG CAPXR PO SCH (13:07)
[2024-10-24] MEDS: INFLUENZA VACC TS2024-25(6m+)/PF (IIV3) 0.5mL Syr IM ONE (18:58)
[2024-10-24] MEDS: ACETAMINOPHEN 325 MG TAB PO PRN (19:30)
[2024-10-24] MEDS: ZOLPIDEM TARTRATE 5 MG TAB PO SCH (21:05)
[2024-10-24] MEDS: traMADol HCL 50 MG TABLET PO SCH (21:05)
[2024-10-25] MEDS: hydrOXYzine HCl 25 MG TAB PO PRN (06:18)
[2024-10-25] MEDS: CITALOPRAM 20 MG TAB PO SCH (09:36)
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
[2024-10-25] MEDS: LORazepam 0.5 MG TAB PO SCH (14:54)
[2024-10-25] MEDS: BACLOFEN 10 MG TAB PO SCH (21:10)
[2024-10-25] MEDS: DOXAZOSIN MESYLATE 1 MG TAB PO SCH (21:11)
[2024-10-26] MEDS: CITALOPRAM 20 MG TAB PO SCH (10:03)
[2024-10-26 10:57] LABS: Chol HDL Ratio 2.4 (0-5)
[2024-10-26 11:07] LABS: Estimated Average Glucose 94 mg/dl; Hemoglobin A1C 4.9 % (4.5-5.6)
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
[2024-10-26 13:17] LABS: Amphetamine Urine, Confirm 261 ng/mL (<250); Methamphetamine, Ur Confirm 1755 ng/mL (<250)
[2024-10-26] MEDS: IBUPROFEN 200 MG TAB PO PRN (16:05)
[2024-10-26] MEDS: busPIRone 15 MG TAB PO PRN (21:12)
[2024-10-26] MEDS: DOXAZosin MESYLATE TAB 2 MG TAB PO SCH (21:14)
[2024-10-27] MEDS: VENLAFAXINE HCL XR 75 MG CAPXR PO SCH (09:16)
[2024-10-27] MEDS: ARTIFICIAL TEARS OPB PRN (10:35)
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
[2024-10-27] MEDS: BACLOFEN 10 MG TAB PO SCH (13:31)
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
== END 2024-10-28 11:35 | disposition home or self-care (01) | DRG 885 ==
LOC: ED 22:28 → 3S 10-24 02:08
DX: Z11.52 Encounter for screening for COVID-19; G89.29 Other chronic pain; Z68.21 Body mass index [BMI] 21.0-21.9, adult; F63.3 Trichotillomania; Z88.8 Allergy status to other drugs, medicaments and biological substances; F33.2 Major depressive disorder, recurrent severe without psychotic features; F17.290 Nicotine dependence, other tobacco product, uncomplicated; F12.10 Cannabis abuse, uncomplicated; Z21 Asymptomatic human immunodeficiency virus [HIV] infection status; F15.90 Other stimulant use, unspecified, uncomplicated; F10.10 Alcohol abuse, uncomplicated; F50.02 Anorexia nervosa, binge eating/purging type; Z79.899 Other long term (current) drug therapy; F41.1 Generalized anxiety disorder; T42.4X2A Poisoning by benzodiazepines, intentional self-harm, initial encounter; F17.210 Nicotine dependence, cigarettes, uncomplicated; F43.10 Post-traumatic stress disorder, unspecified